=== PATIENT | female | born 1935 | race Caucasian/White ===

== ENCOUNTER → 2017-10-16 | Outpatient (CLI) | payer MEDICARE, BC ==
[~2017-10-16] MED LIST: ACET-2043 PO; ALL100 PO; ALLO-119 PO; ALLO100T70 PO; ASCO-191 PO; ASPI-1471 PO; ATOR10TA24 PO; ATOR10TA65 PO; ATOR20TA22 PO; ATOR40TA69 PO; CALC600T63 PO; CELE-1 PO; CHOL200021 PO; CYA1000 PO; GARL10005 PO; GLUC100026 PO; GLUC1TAB PO; HYDR-2966 PO; HYDR12.556 PO; IBAN150T6 PO; LEVO75TA73 PO; LISI-362 PO; MAGN400C PO; MELA5TAB6 PO; MULT-865 PO; MULT-893 PO; NAPR220C12 PO; OMEG-11 PO; PANT40TA65 PO; PRAS25CA7 PO; RANI-324 PO; UBID200C21 PO; VITA-200 PO; VITA100T4 PO; VITA1CAP46 PO; [UNRECOGNIZED DRUG - CODE] PO
--- NOTE | 2017-10-17 17:31 | RADIOLOGY IMAGING REPORT ---
FACILITY: [facility] - [place] PATIENT NAME: SALMA LYON : [id number] MR: [id number] V: [id number] EXAM DATE: [id number] ORDERING PHYSICIAN: STEVE ESQUIVEL TECHNOLOGIST: Dina Wick PROCEDURE:BILATERAL DIGITAL SCREENING MAMMOGRAM WITH CAD ASSISTED INTERPRETATION & 3D TOMOSYNTHESIS COMPARISON:Prior mammograms 10/14/16, 10/13/15, 10/10/14, 10/09/13, 10/08/12, 10/03/11 INDICATIONS:Screening FINDINGS: A small amount of fibroglandular tissue is seen throughout the breasts. The parenchymal pattern has remained stable allowing for difference in mammographic technique & patient positioning. There is no evidence of malignant appearing mass, malignant appearing calcifications or other secondary sign of malignancy in either breast. DIAGNOSTIC CATEGORY 1--NEGATIVE. RECOMMENDATIONS: ROUTINE MAMMOGRAM AND CLINICAL EVALUATION. IMPRESSION: BIRADS 1: Negative No significant abnormality is seen Dictated by: Mariann Flores M.D. on 10/17/2017 at 11:23 Transcribed by: DEBRA on 10/17/2017 at 12:50 Approved by: Mariann Flores M.D. on 10/17/2017 at 17:30 [facility]
== END ==
LOC: MAMO 02:40
PROVIDERS: ATTEND Internal Medicine
DX: Z12.31 Encounter for screening mammogram for malignant neoplasm of breast (principal)
CPT/HCPCS: 77063; 77067

== ENCOUNTER → 2018-07-17 | Outpatient (CLI) | payer MEDICARE, BC ==
[~2018-07-17] MED LIST changes: +HEMP TOP; +Hemp Oil SL; -RANI-324 PO; +RANI-366 PO
== END ==
LOC: LAB 15:19
PROVIDERS: ATTEND Family Medicine
DX: Z92.89 Personal history of other medical treatment (principal)
CPT/HCPCS: 36415; 86803

== ENCOUNTER → 2018-07-25 | Outpatient (CLI) | payer MEDICARE, BC ==
--- NOTE | 2018-07-25 10:54 | RADIOLOGY IMAGING REPORT ---
FACILITY: [facility] - [place] PATIENT NAME: Odessa Turcios : 1935 MR: [id number] V: [id number] EXAM DATE: ORDERING PHYSICIAN: MAE FAUSTIN TECHNOLOGIST: Location: Patient: Odessa Turcois : 1935 Visit/Account:[id number] Date of Sevice: 07/25/2018 DEXA Scan Clinical history: Menopause. Comparison: DEXA scan from to 2. HIP: Bone mineral density (BMD) measured in the Left total hip region correlates with a Z-score 1.4 and a T-score of -0.7 which is Normal as defined by the World Health Organization. The corresponding risk of fracture in the hip is 1-2 times increased compared with a young adult reference population. This total hip value has decrease by 11.1 % since the prior study. More than 5% change is considered sign ificant. T score left femoral neck -0.7 Bone mineral density (BMD) measured in the Femoral Neck region measures 0.943 g/cm2. FOREARM: The bone mineral density (BMD) measured in the ULTRADISTAL Left forearm, where trabecular bone predom inates, correlates with a Z-score 3.5 and a T-score of 0.4 which is normal as defined by the World He alth Organization. The corresponding risk of fracture in the distal forearm is compared with a young adult reference population. The bone mineral density (BMD) in the MIDSHAFT of the forearm, where cortical bone predominates, jj elates with a Z-score 1.9 and a T-score of -1.2 which is osteopenia as defined by the World Health Or ganization. The corresponding risk of fracture in the midshaft of the forearm is 2-3 times increased compared with a young adult reference population. IMPRESSION: 1. Left Hip: Normal. There has been 11.1% decrease in the total hip bone mineral density since the previous exam. 2. Femoral Neck: Bone Mineral Density is 0.943 g/cm2 3. Left Forearm: Osteopenia. There are no prior bone mineral density studies of the left forearm The next DEXA scan of this patient should include the following sites: Left hip and the left forearm. FRAX? WHO Fracture Risk Assessment Tool link: <http://www.shef.acuk/FRAX/tool.jsp?locationValue=9> PLEASE NOTE: 1) The World Health Organization defines low BMD as follows: T-score Normal > -1 Osteopenia < -1 and > -2.5 Osteoporosis < -2.5 without fractures Established osteoporosis < -2.5 with fractures 2) In general, you may wish to consider: Diagnosis Treatment Follow-up DEXA Normal BMD Prevention 2-3 years Osteopenia Prevention/therapy 1-2 years Osteoporosis Therapy Yearly 3) Fracture risk estimated from the T-score is more accurate for vertebral fractures (often spontane ous) than for hip fractures. Report Dictated By: Mariann Flores MD at 07/25/2018 10:47 AM Report E-Signed By: Mariann Flores MD at 07/25/2018 10:50 AM WENDYN:DEANN
== END ==
LOC: RAD 00:30
PROVIDERS: ATTEND Family Medicine
DX: Z13.820 Encounter for screening for osteoporosis (principal); M85.88 Other specified disorders of bone density and structure, other site; Z78.0 Asymptomatic menopausal state
CPT/HCPCS: 77080

== ENCOUNTER → 2018-10-19 | Outpatient (CLI) | payer MEDICARE, BC ==
--- NOTE | 2018-10-22 18:05 | RADIOLOGY IMAGING REPORT ---
FACILITY: PATIENT NAME: SALMA LYON : [id number] MR: [id number] V: [id number] EXAM DATE: ORDERING PHYSICIAN: MAE FAUSTIN TECHNOLOGIST: Aleena Pfeiffer PROCEDURE:BILATERAL DIGITAL SCREENING MAMMOGRAM WITH CAD ASSISTED INTERPRETATION & 3D TOMOSYNTHESIS COMPARISON:Prior mammograms 10/16/17, 10/14/16, 10/13/15, 10/10/14, 10/09/13, 10/08/12. INDICATIONS:SCREENING FINDINGS: The breasts are almost entirely fatty. The parenchymal pattern has remained stable allowing for difference in mammographic technique & patient positioning. DIAGNOSTIC CATEGORY 1--NEGATIVE. RECOMMENDATIONS: ROUTINE MAMMOGRAM AND CLINICAL EVALUATION. IMPRESSION: BIRADS 1: Negative. No significant abnormality is seen. Dictated by: Mariann Flores M.D. on 10/19/2018 at 15:36 Transcribed by: DEBRA on 10/20/2018 at 12:28 Approved by: Mariann Flores M.D. on 10/22/2018 at 18:04 [facility]
== END ==
LOC: MAMO 03:13
PROVIDERS: ATTEND Family Medicine
DX: Z12.31 Encounter for screening mammogram for malignant neoplasm of breast (principal)
CPT/HCPCS: 77063; 77067